=== PATIENT | female | born 1940 | race Caucasian/White ===

== ENCOUNTER 2020-03-11 11:48 | Inpatient (IN) ==
[2020-03-11] MEDS ORDERED: Albuterol 2.5 MG/3 ML NEBULIZER IH PRN (13:34)
[2020-03-11] MEDS: *HR* OxyCODONE/APAP 5/325 TABLET PO PRN ×2 (16:17→22:19)
[2020-03-11] MEDS: Furosemide 40 MG TABLET PO SCH (16:17)
[2020-03-11] MEDS: hydrALAZINE 25 MG TABLET PO SCH (20:06)
[2020-03-11] MEDS: Budesonide/Formoterol 80/4.5 1 PUFF INH IH SCH (21:49)
[2020-03-12] MEDS: *HR* Enoxaparin 40 MG/0.4 ML SYRINGE SQ SCH (05:42)
[2020-03-12] MEDS: *HR* OxyCODONE/APAP 5/325 TABLET PO PRN ×4 (05:43→21:00)
[2020-03-12 07:04] LABS: Basophils % 0.1 %; Eosinophils % 0.4 %; Hematocrit 28.9 % (35.3-44.9); Hemoglobin 9.7 g/dL (11.5-15.4); Immature Granulocytes % 0.5 % (0-4); Lymphocytes # 2.4 K/mcL (0.6-4.6); Mean Corpuscular HGB Conc 33.6 g/dL (31.6-35.5); Mean Corpuscular Hemoglobin 31.4 pg (28.0-33.3); Mean Corpuscular Volume 93.5 fL (83.0-100.0); Mean Platelet Volume 10.3 fL (9.4-12.4); Monocytes # 0.6 K/mcL (0.0-1.3); Monocytes % 6.9 %; Neutrophils # 5.1 K/mcL (1.6-8.9); Nucleated Red Blood Cells 0.2 /100 WBC (0); Platelet Count 247 K/mcL (140-400); Red Blood Count 3.09 M/mcL (3.82-4.97); Red Cell Distribution Width 12.4 % (11.5-14.5); Segmented Neutrophils % 63.1 %; White Blood Count 8.1 K/mcL (4.3-11.1)
[2020-03-12 07:23] LABS: Prothrombin Time 10.9 Seconds (9.4-12.1)
[2020-03-12] MEDS: Aspirin 81 MG TAB.CHEW PO SCH (07:35)
[2020-03-12] MEDS: Furosemide 40 MG TABLET PO SCH ×2 (07:35→17:23)
[2020-03-12] MEDS: Cholecalciferol (D-3) 1,000 UNIT (25MCG) TABLET PO SCH (07:35)
[2020-03-12] MEDS: Sennosides/Docusate Sodium TABLET PO SCH (07:35)
[2020-03-12] MEDS: Metoprolol XL (24 HR) Succ 25 MG TAB.ER.24H PO SCH (07:36)
[2020-03-12] MEDS: hydrALAZINE 25 MG TABLET PO SCH ×2 (07:36→21:00)
[2020-03-12] MEDS: Budesonide/Formoterol 80/4.5 1 PUFF INH IH SCH ×2 (10:49→21:52)
[2020-03-13] MEDS: *HR* OxyCODONE/APAP 5/325 TABLET PO PRN ×3 (04:05→18:03)
[2020-03-13] MEDS: *HR* Enoxaparin 40 MG/0.4 ML SYRINGE SQ SCH (04:05)
[2020-03-13] MEDS: Metoprolol XL (24 HR) Succ 25 MG TAB.ER.24H PO SCH (08:52)
[2020-03-13] MEDS: Aspirin 81 MG TAB.CHEW PO SCH (08:53)
[2020-03-13] MEDS: Sennosides/Docusate Sodium TABLET PO SCH (08:53)
[2020-03-13] MEDS: hydrALAZINE 25 MG TABLET PO SCH ×2 (08:53→19:43)
[2020-03-13] MEDS: Cholecalciferol (D-3) 1,000 UNIT (25MCG) TABLET PO SCH (08:53)
[2020-03-13] MEDS: Furosemide 40 MG TABLET PO SCH ×2 (08:54→17:38)
[2020-03-13] MEDS: Budesonide/Formoterol 80/4.5 1 PUFF INH IH SCH ×2 (10:12→22:36)
[2020-03-14] MEDS: *HR* OxyCODONE/APAP 5/325 TABLET PO PRN ×3 (03:06→16:30)
[2020-03-14] MEDS: *HR* Enoxaparin 40 MG/0.4 ML SYRINGE SQ SCH (05:53)
[2020-03-14] MEDS: Aspirin 81 MG TAB.CHEW PO SCH (08:08)
[2020-03-14] MEDS: Furosemide 40 MG TABLET PO SCH ×2 (08:09→16:30)
[2020-03-14] MEDS: hydrALAZINE 25 MG TABLET PO SCH ×3 (08:09→21:10)
[2020-03-14] MEDS: Sennosides/Docusate Sodium TABLET PO SCH (08:09)
[2020-03-14] MEDS: Cholecalciferol (D-3) 1,000 UNIT (25MCG) TABLET PO SCH (08:09)
[2020-03-14] MEDS: Metoprolol XL (24 HR) Succ 25 MG TAB.ER.24H PO SCH (08:09)
[2020-03-14] MEDS: Budesonide/Formoterol 80/4.5 1 PUFF INH IH SCH ×2 (10:28→21:32)
[2020-03-15] MEDS: *HR* Enoxaparin 30 MG/0.3 ML SYRINGE SQ SCH (06:24)
[2020-03-15] MEDS: Budesonide/Formoterol 80/4.5 1 PUFF INH IH SCH ×2 (08:49→21:59)
[2020-03-15] MEDS: Furosemide 40 MG TABLET PO SCH (09:13)
[2020-03-15] MEDS: Metoprolol XL (24 HR) Succ 25 MG TAB.ER.24H PO SCH (09:14)
[2020-03-15] MEDS: hydrALAZINE 25 MG TABLET PO SCH ×2 (09:14→20:41)
[2020-03-15] MEDS: Aspirin 81 MG TAB.CHEW PO SCH (09:25)
[2020-03-15] MEDS: Cholecalciferol (D-3) 1,000 UNIT (25MCG) TABLET PO SCH (09:25)
[2020-03-15] MEDS: Sennosides/Docusate Sodium TABLET PO SCH (09:25)
[2020-03-15] MEDS: *HR* OxyCODONE/APAP 5/325 TABLET PO PRN ×3 (09:40→20:41)
[2020-03-16] MEDS: *HR* Enoxaparin 30 MG/0.3 ML SYRINGE SQ SCH (05:41)
[2020-03-16] MEDS: Cholecalciferol (D-3) 1,000 UNIT (25MCG) TABLET PO SCH (08:23)
[2020-03-16] MEDS: Aspirin 81 MG TAB.CHEW PO SCH (08:23)
[2020-03-16] MEDS: Metoprolol XL (24 HR) Succ 25 MG TAB.ER.24H PO SCH (08:23)
[2020-03-16] MEDS: Sennosides/Docusate Sodium TABLET PO SCH (08:23)
[2020-03-16] MEDS: Furosemide 40 MG TABLET PO SCH ×2 (08:24→16:14)
[2020-03-16] MEDS: hydrALAZINE 25 MG TABLET PO SCH ×2 (08:24→21:21)
[2020-03-16] MEDS: *HR* OxyCODONE/APAP 5/325 TABLET PO PRN ×3 (08:26→22:36)
[2020-03-16] MEDS: Budesonide/Formoterol 80/4.5 1 PUFF INH IH SCH ×2 (08:50→21:30)
[2020-03-16] MEDS: Simethicone 80 MG TAB.CHEW PO PRN ×2 (16:16→22:36)
[2020-03-17] MEDS: *HR* Enoxaparin 30 MG/0.3 ML SYRINGE SQ SCH (05:53)
[2020-03-17] MEDS: hydrALAZINE 25 MG TABLET PO SCH ×2 (07:59→20:36)
[2020-03-17] MEDS: Cholecalciferol (D-3) 1,000 UNIT (25MCG) TABLET PO SCH (08:00)
[2020-03-17] MEDS: Aspirin 81 MG TAB.CHEW PO SCH (08:00)
[2020-03-17] MEDS: Furosemide 40 MG TABLET PO SCH ×2 (08:00→16:49)
[2020-03-17] MEDS: Metoprolol XL (24 HR) Succ 25 MG TAB.ER.24H PO SCH (08:00)
[2020-03-17] MEDS: Sennosides/Docusate Sodium TABLET PO SCH (08:00)
[2020-03-17] MEDS: Budesonide/Formoterol 80/4.5 1 PUFF INH IH SCH ×2 (08:14→22:04)
[2020-03-17 09:36] LABS: Calcium 9.4 mg/dL (8.6-10.3); Potassium 3.6 mEq/L (3.5-5.1)
[2020-03-17 09:41] LABS: Basophils % 0.3 %; Eosinophils # 0.2 K/mcL (0.0-0.6); Eosinophils % 2.6 %; Hematocrit 34.3 % (35.3-44.9); Hemoglobin 11.3 g/dL (11.5-15.4); Immature Granulocytes % 0.6 % (0-4); Lymphocytes # 1.6 K/mcL (0.6-4.6); Lymphocytes % 18.2 %; Mean Corpuscular HGB Conc 32.9 g/dL (31.6-35.5); Mean Corpuscular Volume 94.2 fL (83.0-100.0); Monocytes # 0.5 K/mcL (0.0-1.3); Monocytes % 5.7 %; Neutrophils # 6.5 K/mcL (1.6-8.9); Platelet Count 364 K/mcL (140-400); Red Blood Count 3.64 M/mcL (3.82-4.97); Red Cell Distribution Width 12.7 % (11.5-14.5); Segmented Neutrophils % 72.6 %
[2020-03-17] MEDS: Simethicone 80 MG TAB.CHEW PO PRN ×2 (10:14→20:33)
[2020-03-17] MEDS: *HR* OxyCODONE/APAP 5/325 TABLET PO PRN ×3 (10:14→20:33)
[2020-03-18] MEDS: *HR* OxyCODONE/APAP 5/325 TABLET PO PRN ×2 (05:57→10:00)
[2020-03-18] MEDS: *HR* Enoxaparin 30 MG/0.3 ML SYRINGE SQ SCH (05:58)
[2020-03-18 06:46] VITALS: BP 109/69
[2020-03-18] MEDS: Cholecalciferol (D-3) 1,000 UNIT (25MCG) TABLET PO SCH (08:30)
[2020-03-18] MEDS: Aspirin 81 MG TAB.CHEW PO SCH (08:30)
[2020-03-18] MEDS: hydrALAZINE 25 MG TABLET PO SCH (08:30)
[2020-03-18] MEDS: Metoprolol XL (24 HR) Succ 25 MG TAB.ER.24H PO SCH (08:30)
[2020-03-18] MEDS: Furosemide 40 MG TABLET PO SCH (08:30)
[2020-03-18] MEDS: Sennosides/Docusate Sodium TABLET PO SCH (08:31)
[2020-03-18] MEDS: Budesonide/Formoterol 80/4.5 1 PUFF INH IH SCH (10:12)
== END 2020-03-18 11:30 | disposition home health service (06) | DRG 560 ==
LOC: INPPIK 13:31
PROVIDERS: ADMIT Family Medicine; ATTEND Family Medicine